=== PATIENT | female | born 1995 | race Caucasian/White ===

== ENCOUNTER 2016-07-06 15:25 | Observation (INO) ==
[2016-07-06] MEDS ORDERED: Acetaminophen 325 MG TABLET PO PRN (16:41)
[2016-07-06] MEDS ORDERED: CefOXitin 2,000 MG VIAL IVPB ONE (17:52)
[2016-07-06 18:04] LABS: Basophils # 0.1 K/mcL (0.0-0.2); Basophils % 0.6 %; Eosinophils # 0.4 K/mcL (0.0-0.6); Eosinophils % 4.9 %; Hematocrit 41.6 % (35.3-44.9); Hemoglobin 14.2 g/dL (11.5-15.4); Immature Granulocytes % 0.3 % (0-4); Lymphocytes % 25.5 %; Mean Corpuscular HGB Conc 34.1 g/dL (31.6-35.5); Mean Corpuscular Hemoglobin 30.7 pg (28.0-33.3); Mean Corpuscular Volume 89.8 fL (83.0-100.0); Monocytes # 0.6 K/mcL (0.0-1.3); Monocytes % 7.4 %; Neutrophils # 4.8 K/mcL (1.6-8.9); Platelet Count 301 K/mcL (140-400); Red Blood Count 4.63 M/mcL (3.82-4.97); Red Cell Distribution Width 12.3 % (11.5-14.5); Segmented Neutrophils % 61.3 %
[2016-07-06] MEDS: cefOXitin 2,000 MG in D5% in Water (Mini-Bag+) 100 ML IVPB SCH (18:17)
[2016-07-06] MEDS ORDERED: 0.9 % Sodium Chloride 1,000 ML ONE (21:31)
[2016-07-06] MEDS: Doxycycline 100 MG CAPSULE PO SCH (21:56)
[2016-07-07] MEDS: cefOXitin 2,000 MG in D5% in Water (Mini-Bag+) 100 ML IVPB SCH ×3 (00:04→12:21)
--- NOTE | 2016-07-07 08:05 | Discharge Summary ---
Date of Encounter: 07/07/16 Time of Encounter: 08:05 - Discharge Diagnosis (1) PID (acute pelvic inflammatory disease) Priority: Primary Status: Acute Comments: Pt evaluated in ED yesterday for pelvic pain. She had a CT that was normal per her report. She was then sent to the OBGYN office for further evaluation. US showed some concern for pus in the fallopian tube. Due to her age and concern for infertility with PID, the decision was made to treat the pt with IV antibiotics for 24 hours. Pt reports feeling better this am and is requesting discharge. - Discharge Medications Prescriptions: Doxycycline 100 mg PO BID #14 capsule Home Medications: Acetaminophen [Tylenol] 650 mg PO Q6HR PRN #0 tablet 07/07/16 [Rx] Cephalexin [Keflex] 500 mg PO TID #21 capsule 07/07/16 [Rx] Doxycycline 100 mg PO BID #14 capsule 07/07/16 [Rx] Allergies/Adverse Reactions: Allergies Amoxicillin Allergy (Verified 07/06/16 16:56) Hives Penicillins [PCN] Allergy (Verified 07/06/16 16:55) Hives Data Procedures and tests throughout hospitalization: Laboratory Tests 07/06/16 07/06/16 17:45 18:00 WBC 7.9 RBC 4.63 Hgb 14.2 Hct 41.6 MCV 89.8 MCH 30.7 MCHC 34.1 RDW 12.3 Plt Count 301 MPV 10.0 Immature Gran % 0.3 Seg Neutrophils % 61.3 Lymphocytes % 25.5 Monocytes % 7.4 Eosinophils % 4.9 Basophils % 0.6 Neutrophils # 4.8 Lymphocytes # 2.0 Monocytes # 0.6 Eosinophils # 0.4 Basophils # 0.1 Beta HCG, Quant < 1 Labs on day of discharge: Labs from last 24 hours 07/06/16 07/06/16 18:00 17:45 WBC 7.9 RBC 4.63 Hgb 14.2 Hct 41.6 MCV 89.8 MCH 30.7 MCHC 34.1 RDW 12.3 Plt Count 301 MPV 10.0 Immature Gran % 0.3 Seg Neutrophils % 61.3 Lymphocytes % 25.5 Monocytes % 7.4 Eosinophils % 4.9 Basophils % 0.6 Neutrophils # 4.8 Lymphocytes # 2.0 Monocytes # 0.6 Eosinophils # 0.4 Basophils # 0.1 Beta HCG, Quant < 1 Date of admission: 07/06/16 15:27 Primary care physician: PCP NO Discharging clinician: Samantha Chiang Anticipated date of discharge: 07/07/16 - Patient Status Disposition: Home, Self-Care Condition: Good Functional capacity at discharge: independent ambulation Overall status at discharge: patient is progressing back to baseline - Discharge Instructions Follow Up With: [facility]A,PCP [Primary Care Provider] - Yamini Guaman CNM [Advanced Practice Nurse] - - Diet and Activity Activity: increase activity as tolerated Diet: regular diet Hospital Course [employer] Hospital course: Pt evaluated in ED yesterday for pelvic pain. She had a CT that was normal per her report. She was then sent to the OBGYN office for further evaluation. US showed some concern for pus in the fallopian tube. Due to her age and concern for infertility with PID, the decision was made to treat the pt with IV antibiotics for 24 hours. Pt reports feeling better this am and is requesting discharge. Time Attestation: Total time spent providing and/or coordinating discharge services: Exam - Constitutional Vitals: Temp Pulse Resp BP Pulse Ox 98.1 F 70 14 96/59 97 07/07/16 00:05 07/07/16 00:05 07/07/16 07:48 07/07/16 00:05 07/07/16 00:05 General appearance IM: A&O X 3, pleasant, no acute distress - Respiratory Respiratory exam: Present: CTAB - Cardiovascular Cardiovascular exam IM: Present: RRR, +S1, +S2 - GI/Abdominal GI/Abdominal exam IM: soft, tenderness (mild tenderness throughout lower abdomen , pt reports much improved) - Extremities Exam Extremities exam IM: Present: normal inspection - Neurological Exam Neurological exam: normal gait, oriented X3 - VTE Reasons for not Prescribing Prophylaxis: Treatment not Indicated - Low risk for VTE
[2016-07-07 08:13] VITALS: BP 91/57
[2016-07-07] MEDS: Doxycycline 100 MG CAPSULE PO SCH (10:51)
== END 2016-07-07 13:13 | disposition home or self-care (01) ==
LOC: 1NENUPED → 1NENUOBS 16:29
PROVIDERS: ADMIT Advanced Practice Midwife; ATTEND Advanced Practice Midwife